=== PATIENT | male | born 1985 | race African-American/Black ===

== ENCOUNTER 2017-05-08 20:57 | Emergency (ER) | payer OTHER ==
[~2017-05-08] VITALS: Ht 167.6 cm; Wt 81.8 kg
--- NOTE | ~2017-05-08 | CR93 ---
[facility]. [facility] A Service of [facility] & [facility] RADIOLOGY TEXT RESULTS PATIENT: ALLEN RAM LOCATION: SED : [birth year] UNIT #: [id number] AGE: [address]: Nba Peck MD SEX: M ORDER DR: [id number] [place] [id number] E MR#: [id number] Acc #: [id number] NAME: ALLEN RAM : 1985 SEX: M STUDY DATE/TIME: 05/08/2017 21:20 UNIT: SED ROOM: STUDY DESCRIPTION: CR Elbow Min 3 Views Lt Attending Physician: Nba Peck M.D. Ordering Physician: Nba Peck M.D. Primary Care Physician: Ava Santos M.D. MEDICAL IMAGING REPORT This report is preliminary unless electronic signature is present. EXAM Left elbow 05/08/2017 INDICATION 31-year-old male with chronic pain and swelling. Intermittent symptoms since January after a fall. TECHNIQUE Three views. No comparisons. FINDINGS The examination is negative. No acute fracture, joint effusion or retained opaque foreign body. IMPRESSION Negative. Dictated by... Juvenal Sarmiento M.D. THIS IS AN ELECTRONICALLY VERIFIED REPORT Juvenal Sarmiento M.D. at 05/09/2017 11:32 PM SUNDEEP/aurea TD: 05/09/2017 13:17 JOB #: [id number] MEDICAL IMAGING REPORT Page 1 of 1
[~2017-05-08 20:57] MED LIST: KEFLEX500 MG PO; MELATONIN1 MG DOB; MOBIC PO; NAPROSYN-EC500 MG DOB; SALINE NOSE SPR45 M1; SERTRALINE HCL50 M1 PO; VITAMIN D350000 UNIT PO; ZANTAC PO
== END 2017-05-08 22:18 | disposition home or self-care (01) ==
LOC: SED 20:57
DX: M25.522 Pain in left elbow (principal); F32.9 Major depressive disorder, single episode, unspecified; F17.200 Nicotine dependence, unspecified, uncomplicated
CPT/HCPCS: 73080; 99283